=== PATIENT | female | born 2000 | race Hispanic/Latino ===

== ENCOUNTER 2021-08-04 23:32 | Day surgery (SDC) | payer OTHER ==
[2021-08-05 00:14] VITALS: BMI 35.2
[2021-08-05 00:39] LABS: Fetal Membranes Rupture No Membranes Rupture (No Rupture)
== END 2021-08-05 00:50 | disposition home or self-care (01) ==
LOC: CSHLD/OP 23:32
PROVIDERS: ATTEND Family Medicine
DX: O99.891 Other specified diseases and conditions complicating pregnancy (principal); N89.8 Other specified noninflammatory disorders of vagina; M54.9 Dorsalgia, unspecified; O36.8130 Decreased fetal movements, third trimester, not applicable or unspecified; Z3A.38 38 weeks gestation of pregnancy
CPT/HCPCS: 84112

== ENCOUNTER 2021-08-06 23:28 | Inpatient (IN) | payer OTHER ==
[2021-08-07] MEDS ORDERED: Ondansetron PF 4 MG/2 ML Vial IVP PRN (00:07)
[2021-08-07] MEDS ORDERED: Lidocaine 1% (PF) 30 ML VIAL SC PRN (00:07)
[2021-08-07] MEDS ORDERED: Butorphanol Tartrate 1 MG/ML VIAL SLOW IVP PRN (00:07)
[2021-08-07] MEDS ORDERED: Ibuprofen 800 MG TAB PO PRN (00:07)
[2021-08-07] MEDS ORDERED: HYDROcodone/Acetaminophen 5/325 mg Tablet PO PRN ×2 (00:07→08:01)
[2021-08-07] MEDS ORDERED: hydrALAZINE 20 MG/ML VIAL SLOW IVP PRN ×2 (00:07→08:01)
[2021-08-07] MEDS ORDERED: Promethazine HCl 25 MG/ML VIAL IM PRN (00:07)
[2021-08-07] MEDS ORDERED: Penicillin G Potassium 5 MILL.UNITS VIAL ONE (00:13)
[2021-08-07] MEDS ORDERED: NS w/ Oxytocin 30 units 500 ML IV SCH (00:15)
[2021-08-07] MEDS ORDERED: Lactated Ringer's 1,000 ML IV SCH ×2 (00:15)
[2021-08-07] MEDS ORDERED: Penicillin G Potassium 5 MILL.UNITS in Sodium Chloride 0.9% 100 ML IVPB SCH (00:15)
[2021-08-07] MEDS ORDERED: Lidocaine 1% (PF) 30 ML VIAL ONE (00:23)
[2021-08-07] MEDS ORDERED: NS w/ Oxytocin 30 units 500 ML ONE (00:23)
[2021-08-07] MEDS ORDERED: Oxytocin 10 UNITS/ML VIAL ONE (00:28)
[2021-08-07] MEDS ORDERED: Misoprostol 200 MCG TAB ONE ×2 (00:43→00:45)
[2021-08-07 00:45] LABS: Hemoglobin 10.9 g/dL (12.0-15.5); Mean Corpuscular HGB CONC 32.6 g/dL (32.0-36.0); Mean Corpuscular Hemoglobin 29.5 pg (27.0-33.0); Mean Corpuscular Volume 90.5 fl (81.6-98.3); Mean Platelet Volume 11.6 fl (7.4-10.4); Platelet Count 284 10x3/uL (150-450); RBC Distribution Width 13.7 % (11.5-14.5); Red Blood Cell (RBC) Count 3.69 10x6/uL (3.90-5.03); White Blood Cell (WBC) Count 12.2 10x3/uL (3.5-10.5)
[2021-08-07 01:12] LABS: Hep B Surf Ag Non-Reactive S/CO (NonReactive); Syphilis Antibody Nonreactive (Nonreactive); Syphilis Antibody Index 0.04 S/CO (<1.00 Non-Reactive)
[2021-08-07 01:35] LABS: HBSAg Index 0.18 S/CO (0-0.99)
[2021-08-07] MEDS ORDERED: Penicillin G 2.5 MILL.units 2.5 MILL.UNITS in Premix Bag 1 BAG IVPB SCH (04:00)
[2021-08-07 05:25] VITALS: BMI 35.2
[2021-08-07] MEDS ORDERED: Milk Of Magnesia 30 ML UDCUP PO PRN (08:01)
[2021-08-07] MEDS ORDERED: Bisacodyl 10 MG SUPP PR PRN (08:01)
[2021-08-07] MEDS ORDERED: Boostrix 0.5 ML (Tdap) VIAL IM ONE (08:01)
[2021-08-07] MEDS ORDERED: Lanolin Ointment 7 GM TUBE TOP PRN (08:01)
[2021-08-07] MEDS ORDERED: Benzocaine-Menthol 82.5 ML CAN TOP PRN (08:01)
[2021-08-07] MEDS: Docusate 100 MG CAP PO SCH ×2 (11:28→22:03)
[2021-08-07] MEDS: Ferrous Sulfate 325 MG TAB PO SCH ×2 (11:28→17:59)
[2021-08-07] MEDS: Prenatal Vitamin 1 TAB PO SCH (11:29)
[2021-08-07] MEDS: Ibuprofen 800 MG TAB PO SCH ×2 (14:17→22:03)
[2021-08-07 21:00] LABS: SARS-CoV-2 PCR by NAA DETECTED (NotDetected)
[2021-08-08 05:00] LABS: Hemoglobin 8.3 g/dL (12.0-15.5)
[2021-08-08] MEDS: Ibuprofen 800 MG TAB PO SCH ×4 (06:24→22:02)
[2021-08-08] MEDS: Docusate 100 MG CAP PO SCH ×2 (09:49→22:01)
[2021-08-08] MEDS: Prenatal Vitamin 1 TAB PO SCH (09:49)
[2021-08-08] MEDS: Ferrous Sulfate 325 MG TAB PO SCH ×2 (09:50→16:42)
[2021-08-09] MEDS: Ibuprofen 800 MG TAB PO SCH (05:21)
[2021-08-09 09:15] VITALS: BP 115/60; TEMP 98
== END 2021-08-09 11:11 | disposition home or self-care (01) | DRG 805 ==
LOC: CSHLD/OP 23:28 → CSHLD 08-07 00:17 → CSHPED 08-07 11:20
PROVIDERS: ADMIT Family Medicine; ATTEND Family Medicine
PROC: 10E0XZZ Delivery of Products of Conception, External Approach (ICD-10-PCS; principal; 2021-08-07)
PROC: 0KQM0ZZ Repair Perineum Muscle, Open Approach (ICD-10-PCS; 2021-08-07)
PROC: 8E0ZXY6 Isolation (ICD-10-PCS; 2021-08-07)
DX: O98.52 Other viral diseases complicating childbirth (principal); U07.1 COVID-19; Z37.0 Single live birth; O70.1 Second degree perineal laceration during delivery; Z3A.38 38 weeks gestation of pregnancy
CPT/HCPCS: 36415; 85014; 85018; 85027; 86780; 86850; 86900; 86901; 87340; 99285; J2540; J2590; U0003; U0005

== ENCOUNTER 2021-09-15 01:29 | Emergency (ER) | payer OTHER ==
[2021-09-15 02:04] LABS: #Eosinphils 0.2 10x3/uL (0.0-0.5); #Monocytes 0.6 10x3/uL (0.0-1.1); #Neutrophils 6.1 10x3/uL (1.5-8.4); %Basophils 0.4 % (0.0-2.0); %Eosinophils 2.4 % (0.0-6.0); %Lymphocytes 18.5 % (18.0-47.0); %Monocytes 6.7 % (0.0-10.0); %Neutrophils 71.5 % (40.0-75.0); Hemoglobin 11.1 g/dL (12.0-15.5); Mean Corpuscular HGB CONC 31.8 g/dL (32.0-36.0); Mean Corpuscular Volume 88.1 fl (81.6-98.3); Mean Platelet Volume 11.5 fl (7.4-10.4); Platelet Count 294 10x3/uL (150-450); RBC Distribution Width 14.1 % (11.5-14.5); Red Blood Cell (RBC) Count 3.96 10x6/uL (3.90-5.03); White Blood Cell (WBC) Count 8.5 10x3/uL (3.5-10.5)
[2021-09-15 02:13] LABS: ALT (SGPT) 22 U/L (8-55); AST (SGOT) 14 U/L (5-30); Albumin 3.9 g/dL (3.5-5.0); Alkaline Phosphatase 111 U/L (40-100); Anion Gap 11 mmol/L (10-20); BUN (Urea Nitrogen) 13 mg/dL (8.4-21.0); Bilirubin, Total 0.3 mg/dL (0.2-1.2); Calc. Creatinine Clearance 0 mL/min (70-130); Calcium 8.5 mg/dL (7.8-10.44); Carbon Dioxide 23 mmol/L (22-29); Chloride 110 mmol/L (98-107); Globulin 2.8 g/dL (2.4-3.5); Glucose 94 mg/dL (70-105); Lipase 27 U/L (8-78); Potassium 3.8 mmol/L (3.5-5.1); Protein, Total 6.7 g/dL (6.0-8.3); Sodium 140 mmol/L (136-145)
[2021-09-15] MEDS ORDERED: Ondansetron PF 4 MG/2 ML Vial ONE (03:01)
[2021-09-15] MEDS ORDERED: Morphine 4 MG/ML VIAL ONE (03:01)
[2021-09-15] MEDS ORDERED: Ketorolac Tromethamine 30 MG/ML VIAL ONE (03:02)
== END 2021-09-15 03:18 | disposition home or self-care (01) ==
LOC: CSHERS 01:29
DX: K80.20 Calculus of gallbladder without cholecystitis without obstruction (principal)
CPT/HCPCS: 76705; 80053; 83690; 85025; 96374; 96375; J1885; J2270; J2405

== ENCOUNTER 2023-12-15 09:07 | Emergency (ER) | payer OTHER ==
[2023-12-15 09:57] LABS: #Basophils 0.03 10x3/uL (0.0-0.2); #Eosinphils 0.22 10x3/uL (0.0-0.5); #Monocytes 0.53 10x3/uL (0.0-1.1); #Neutrophils 5.97 10x3/uL (1.5-8.4); %Basophils 0.3 % (0.0-2.0); %Eosinophils 2.5 % (0.0-6.0); %Lymphocytes 23.4 % (18.0-47.0); %Neutrophils 67.5 % (40.0-75.0); Hemoglobin 11.5 g/dL (12.0-15.5); Mean Corpuscular HGB CONC 33.8 g/dL (32.0-36.0); Mean Corpuscular Hemoglobin 30.6 pg (27.0-33.0); Mean Corpuscular Volume 90.4 fl (81.6-98.3); Mean Platelet Volume 11.5 fl (7.4-10.4); Platelet Count 322 10x3/uL (150-450); RBC Distribution Width 14.1 % (11.5-14.5); Red Blood Cell (RBC) Count 3.76 10x6/uL (3.90-5.03); White Blood Cell (WBC) Count 8.9 10x3/uL (3.5-10.5)
[2023-12-15 10:05] LABS: Bilirubin Neg (Negative); Blood, Urine 25 (Negative); Glucose, Urine (Dipstick) Normal (Negative); Ketone, Urine Negative (Negative); Leukocyte 500 (Negative); Nitrite Negative (Negative); Protein, Urine (Dipstick) 30 mg/dl (Neg-Trace); Urobilinogen Normal mg/dL (Less than 2)
[2023-12-15 10:08] LABS: Clarity Slightly Cloudy (Clear)
[2023-12-15 10:13] LABS: Bacteria/HPF 1+ HPF (None Seen)
[2023-12-15 10:16] LABS: CAUTI Indications for Culture Pregnancy
[2023-12-15 10:16] LABS: ALT (SGPT) 9 U/L (8-55); AST (SGOT) 13 U/L (5-34); Alkaline Phosphatase 64 U/L (40-110); Anion Gap 12 mmol/L (10-20); BUN (Urea Nitrogen) 7 mg/dL (7.0-18.7); Bilirubin, Total 0.2 mg/dL (0.2-1.2); Calc. Creatinine Clearance 0 mL/min (70-130); Calcium 8.7 mg/dL (7.8-10.44); Carbon Dioxide 20 mmol/L (22-29); Chloride 107 mmol/L (98-107); Estimated GFR 126; Globulin 3.3 g/dL (2.4-3.5); Glucose 85 mg/dL (70-105); Lipase 16 U/L (8-78); Potassium 3.5 mmol/L (3.5-5.1); Protein, Total 6.3 g/dL (6.0-8.3); Sodium 135 mmol/L (136-145)
[2023-12-15 10:18] LABS: Urine Culture Reflex Yes Yes
[2023-12-15 11:07] LABS: Bilirubin Neg (Negative); Blood, Urine Negative (Negative); Clarity Clear (Clear); Glucose, Urine (Dipstick) Normal (Negative); Ketone, Urine Negative (Negative); Leukocyte 100 (Negative); Nitrite Negative (Negative); Protein, Urine (Dipstick) Negative (Neg-Trace); Specific Gravity, Urine 1.005 (1.005-1.030); Urobilinogen Normal mg/dL (Less than 2); pH, Urine 6.5 (5.0-9.0)
[2023-12-15 11:35] LABS: Bacteria/HPF Rare-Few HPF (None Seen); CAUTI Indications for Culture Acute Hematuria; RBC/HPF 0-3 HPF (0-3)
[2023-12-15 11:37] LABS: Urine Culture Reflex No No
== END 2023-12-15 12:10 | disposition home or self-care (01) ==
LOC: CSHERS 09:07
DX: O23.591 Infection of other part of genital tract in pregnancy, first trimester (principal); B96.89 Other specified bacterial agents as the cause of diseases classified elsewhere; O98.811 Other maternal infectious and parasitic diseases complicating pregnancy, first trimester; B37.31 Acute candidiasis of vulva and vagina; Z3A.01 Less than 8 weeks gestation of pregnancy
CPT/HCPCS: 80053; 81001; 83690; 84702; 85025; 87086; 87480; 87510; 87660; 99284

== ENCOUNTER 2024-03-10 10:52 | Observation (INO) | payer OTHER ==
[2024-03-10] MEDS ORDERED: hydrALAZINE 20 MG/ML VIAL SLOW IVP PRN (12:04)
[2024-03-10] MEDS: Lactated Ringer's 1,000 ML IV SCH (12:20)
[2024-03-10 13:23] LABS: Fetal Membranes Rupture No Membranes Rupture (No Rupture)
[2024-03-10] MEDS: Fluconazole 100 MG TAB PO SCH (16:38)
[2024-03-10 16:46] VITALS: BMI 33.9
[2024-03-10] MEDS: metroNIDAZOLE 500 MG TAB PO SCH (21:28)
[2024-03-11 07:53] VITALS: BP 126/72; TEMP 97.5
== END 2024-03-11 10:20 | disposition home or self-care (01) ==
LOC: CSHLD/OP 10:52 → CSHANTE 16:06
PROVIDERS: ADMIT Family Medicine; ATTEND Family Medicine
DX: O60.03 Preterm labor without delivery, third trimester (principal); Z3A.29 29 weeks gestation of pregnancy
CPT/HCPCS: 76816; 76817; 76819; 84112; 87480; 87510; 87660; 96360; 99285; J7120

== ENCOUNTER 2024-04-20 09:50 | Observation (INO) | payer OTHER ==
[2024-04-20 10:03] VITALS: BMI 38.9
[2024-04-20] MEDS ORDERED: hydrALAZINE 20 MG/ML VIAL SLOW IVP PRN (11:01)
[2024-04-20] MEDS: Lactated Ringer's 1,000 ML IV SCH (13:00)
[2024-04-20 13:19] LABS: Bilirubin Neg (Negative); Blood, Urine 50 (Negative); Clarity Clear (Clear); Glucose, Urine (Dipstick) Normal (Negative); Ketone, Urine Negative (Negative); Leukocyte 500 (Negative); Nitrite Negative (Negative); Protein, Urine (Dipstick) 15 mg/dl (Neg-Trace); Specific Gravity, Urine 1.005 (1.005-1.030); Urobilinogen Normal mg/dL (Less than 2)
[2024-04-20 14:07] LABS: Bacteria/HPF 2+ HPF (None Seen); CAUTI Indications for Culture Pregnancy; RBC/HPF 0-3 HPF (0-3)
[2024-04-20 14:09] LABS: Urine Culture Reflex Yes Yes
[2024-04-20] MEDS: Fluconazole 100 MG TAB PO SCH (14:34)
[2024-04-20] MEDS: metroNIDAZOLE 500 MG TAB PO SCH (14:34)
[2024-04-20] MEDS ORDERED: Ondansetron PF 4 MG/2 ML Vial IVP PRN (16:30)
[2024-04-20] MEDS ORDERED: Promethazine HCl 25 MG/ML VIAL IM PRN (16:30)
[2024-04-20] MEDS ORDERED: Oxytocin 30 units/NS 500 ML 500 ML IV SCH (16:30)
[2024-04-20] MEDS ORDERED: Lidocaine 1% (PF) 30 ML VIAL SC PRN (16:30)
[2024-04-20] MEDS ORDERED: Carboprost 250 MCG/ML AMP IM PRN (16:31)
[2024-04-20] MEDS ORDERED: Diphenoxylate HCl/Atropine Tablet PO PRN (16:31)
[2024-04-20] MEDS ORDERED: Tranexamic Acid 1,000 MG/10 ML VIAL IVP PRN (16:31)
[2024-04-20] MEDS ORDERED: Methylergonovine 0.2 MG/ML VIAL IM PRN (16:31)
[2024-04-20] MEDS ORDERED: Misoprostol 200 MCG TAB PR PRN (16:31)
[2024-04-20] MEDS: Penicillin G Potassium 5 MILL.UNITS in Sodium Chloride 0.9% 100 ML IVPB SCH (17:53)
[2024-04-20 20:07] LABS: Hematocrit 33.8 % (34.9-44.5); Hemoglobin 10.3 g/dL (12.0-15.5); Mean Corpuscular HGB CONC 30.5 g/dL (32.0-36.0); Mean Corpuscular Volume 88.5 fL (81.6-98.3); Mean Platelet Volume 11.8 fL (7.4-10.4); Platelet Count 307 10x3/uL (150-450); RBC Distribution Width 19.9 % (11.5-14.5); Red Blood Cell (RBC) Count 3.82 10x6/uL (3.90-5.03); White Blood Cell (WBC) Count 10.7 10x3/uL (3.5-10.5)
[2024-04-20 20:31] LABS: HBsAg Index 0.23 S/CO (0-0.99); Hep B Surf Ag - L&D Non-Reactive S/CO (NonReactive)
[2024-04-20 20:33] LABS: Syphilis Antibody Nonreactive (Nonreactive); Syphilis Antibody Index 0.04 S/CO (<1.00 Non-Reactive)
[2024-04-20] MEDS ORDERED: metroNIDAZOLE 500 MG TAB PO SCH (21:00)
[2024-04-21] MEDS: Lactated Ringer's 1,000 ML IV SCH (00:45)
[2024-04-21] MEDS: Penicillin G 2.5 MILL.units 2.5 MILL.UNITS in Premix 1 BAG IVPB SCH (00:46)
== END 2024-04-21 12:15 | disposition home health service (06) ==
LOC: CSHLD/OP 09:50 → INTOOBSV 16:33 → CSHLD 16:33
PROVIDERS: ADMIT Family Medicine; ATTEND Family Medicine
DX: O36.8130 Decreased fetal movements, third trimester, not applicable or unspecified (principal); O99.891 Other specified diseases and conditions complicating pregnancy; R10.30 Lower abdominal pain, unspecified; O98.813 Other maternal infectious and parasitic diseases complicating pregnancy, third trimester; B37.31 Acute candidiasis of vulva and vagina; O99.613 Diseases of the digestive system complicating pregnancy, third trimester; K21.9 Gastro-esophageal reflux disease without esophagitis; O26.873 Cervical shortening, third trimester; Z3A.35 35 weeks gestation of pregnancy; Z90.49 Acquired absence of other specified parts of digestive tract; Z79.899 Other long term (current) drug therapy
CPT/HCPCS: 76815; 76819; 81001; 85027; 86780; 86850; 86900; 86901; 87086; 87340; 87480; 87510; 87660; 99285; G0378; J2540; J7120

== ENCOUNTER 2024-04-26 16:12 | Inpatient (IN) | payer OTHER ==
[2024-04-26] MEDS ORDERED: Penicillin G Potassium 5 MILL.UNITS VIAL ONE (16:57)
[2024-04-26 17:10] VITALS: BMI 39.8
[2024-04-26] MEDS ORDERED: hydrALAZINE 20 MG/ML VIAL SLOW IVP PRN (17:16)
[2024-04-26] MEDS ORDERED: Ondansetron PF 4 MG/2 ML Vial IVP PRN (17:16)
[2024-04-26] MEDS ORDERED: Promethazine HCl 25 MG/ML VIAL IM PRN (17:16)
[2024-04-26] MEDS ORDERED: Oxytocin 30 units/NS 500 ML 500 ML IV SCH (17:30)
[2024-04-26 18:02] LABS: Hematocrit 34.6 % (34.9-44.5); Hemoglobin 10.8 g/dL (12.0-15.5); Mean Corpuscular HGB CONC 31.2 g/dL (32.0-36.0); Mean Corpuscular Hemoglobin 28.5 pg (27.0-33.0); Mean Corpuscular Volume 91.3 fL (81.6-98.3); Mean Platelet Volume 11.9 fL (7.4-10.4); Platelet Count 281 10x3/uL (150-450); RBC Distribution Width 21.5 % (11.5-14.5); Red Blood Cell (RBC) Count 3.79 10x6/uL (3.90-5.03); White Blood Cell (WBC) Count 10.1 10x3/uL (3.5-10.5)
[2024-04-26 18:27] LABS: ALT (SGPT) 11 U/L (8-55); AST (SGOT) 14 U/L (5-34); Albumin 2.8 g/dL (3.5-5.0); Alkaline Phosphatase 138 U/L (40-110); Anion Gap 14 mmol/L (10-20); BUN (Urea Nitrogen) 9 mg/dL (7.0-18.7); Bilirubin, Total 0.2 mg/dL (0.2-1.2); Calc. Creatinine Clearance 219 mL/min (70-130); Calcium 9.2 mg/dL (7.8-10.44); Carbon Dioxide 18 mmol/L (22-29); Chloride 109 mmol/L (98-107); Estimated GFR 128; Globulin 3.1 g/dL (2.4-3.5); Glucose 77 mg/dL (70-105); Potassium 4.2 mmol/L (3.5-5.1); Protein, Total 5.9 g/dL (6.0-8.3); Sodium 137 mmol/L (136-145)
[2024-04-26 18:45] LABS: HBsAg Index 0.22 S/CO (0-0.99); Hep B Surf Ag - L&D Non-Reactive S/CO (NonReactive)
[2024-04-26 18:47] LABS: Syphilis Antibody Nonreactive (Nonreactive); Syphilis Antibody Index 0.04 S/CO (<1.00 Non-Reactive)
[2024-04-26] MEDS: Oxytocin 30 units/NS 500 ML 500 ML IV SCH (19:33)
[2024-04-26] MEDS ORDERED: Ibuprofen 800 MG TAB PO PRN (20:51)
[2024-04-26] MEDS ORDERED: Carboprost 250 MCG/ML AMP IM PRN (20:51)
[2024-04-26] MEDS ORDERED: Diphenoxylate HCl/Atropine Tablet PO PRN (20:51)
[2024-04-26] MEDS ORDERED: Tranexamic Acid 1,000 MG/10 ML VIAL IVP PRN (20:51)
[2024-04-26] MEDS ORDERED: Lactated Ringer's 1,000 ML IV SCH (21:00)
[2024-04-26] MEDS: Penicillin G 2.5 MILL.units 2.5 MILL.UNITS in Premix 1 BAG IVPB SCH (21:45)
[2024-04-26] MEDS ORDERED: fentaNYL/Ropivacaine Epidural 100 ML ONE (23:40)
[2024-04-27] MEDS: fentaNYL 50 mcg/mL 1 mL Vial SLOW IVP PRN (00:16)
[2024-04-27] MEDS: Methylergonovine 0.2 MG/ML VIAL IM PRN (00:41)
[2024-04-27] MEDS: Lidocaine 1% (PF) 30 ML VIAL SC PRN (00:44)
[2024-04-27] MEDS: Morphine 4 MG/ML VIAL ONE (00:52)
[2024-04-27] MEDS: Misoprostol 200 MCG TAB PR PRN (01:06)
[2024-04-27] MEDS ORDERED: Preparation H Ointment 28 GM TUBE PR PRN (03:26)
[2024-04-27] MEDS ORDERED: Promethazine HCl 25 MG/ML VIAL IM PRN (03:26)
[2024-04-27] MEDS ORDERED: Lanolin Ointment 7 GM TUBE TOP PRN (03:26)
[2024-04-27] MEDS ORDERED: Boostrix 0.5 ML (Tdap) VIAL (>/=7 yrs of age) IM ONE (03:26)
[2024-04-27] MEDS ORDERED: Benzocaine-Menthol 82.5 ML CAN TOP PRN (03:26)
[2024-04-27] MEDS ORDERED: hydrALAZINE 20 MG/ML VIAL SLOW IVP PRN (03:26)
[2024-04-27] MEDS ORDERED: Milk Of Magnesia 30 ML UDCUP PO PRN (03:26)
[2024-04-27] MEDS ORDERED: Ondansetron PF 4 MG/2 ML Vial IVP PRN (03:26)
[2024-04-27] MEDS ORDERED: Bisacodyl 10 MG SUPP PR PRN (03:26)
[2024-04-27] MEDS: Ibuprofen 800 MG TAB PO SCH (05:10)
[2024-04-27] MEDS: Prenatal Vitamin 1 TAB PO SCH (09:41)
[2024-04-27] MEDS: Ferrous Sulfate 325 MG TAB PO SCH (09:41)
[2024-04-27] MEDS: Docusate 100 MG CAP PO SCH (09:41)
[2024-04-27] MEDS: fentaNYL 50 mcg/mL 1 mL Vial ONE (19:17)
[2024-04-27] MEDS: Misoprostol 200 MCG TAB ONE (19:17)
[2024-04-27] MEDS: Erythromycin Base 0.5% Oint 1 GM TUBE ONE (19:17)
[2024-04-27] MEDS: Phytonadione Neonatal 1 MG/0.5 ML AMP ONE (19:18)
[2024-04-28 08:19] VITALS: BP 103/57; TEMP 98.4
[2024-04-28] MEDS: Hepatitis B Vaccine 10 MCG/0.5 ML SYR ONE (08:35)
== END 2024-04-28 17:25 | disposition home or self-care (01) | DRG 806 ==
LOC: CSHLD 16:12 → CSHPP 04-27 03:05
PROVIDERS: ADMIT Family Medicine; ATTEND Family Medicine
PROC: 10E0XZZ Delivery of Products of Conception, External Approach (ICD-10-PCS; principal; 2024-04-27)
PROC: 10H07YZ Insertion of Other Device into Products of Conception, Via Natural or Artificial Opening (ICD-10-PCS; 2024-04-27)
PROC: 0HQ9XZZ Repair Perineum Skin, External Approach (ICD-10-PCS; 2024-04-27)
DX: O99.824 Streptococcus B carrier state complicating childbirth (principal); O26.873 Cervical shortening, third trimester; Z37.0 Single live birth; O99.02 Anemia complicating childbirth; D64.9 Anemia, unspecified; Z3A.35 35 weeks gestation of pregnancy; N88.8 Other specified noninflammatory disorders of cervix uteri; O99.214 Obesity complicating childbirth; E66.9 Obesity, unspecified; O70.0 First degree perineal laceration during delivery; O99.892 Other specified diseases and conditions complicating childbirth
CPT/HCPCS: 80053; 85027; 86780; 86850; 86900; 86901; 87340; J2210; J2272; J2540; J2590; J3010

== ENCOUNTER 2025-02-24 01:59 | Emergency (ER) | payer OTHER ==
[2025-02-24 02:29] LABS: Glucose, Urine (Dipstick) Normal (Negative); Leukocyte Negative (Negative); Pregnancy Test - Urine (BHCG) POSITIVE (Negative); Pregu Control Background? CLEAR/WHITE (CLR/WHITE); Pregu Control Bar Appear? YES (CONTROL BAR); Protein, Urine (Dipstick) 15 mg/dl (Neg-Trace); Specific Gravity, Urine 1.025 (1.005-1.030)
[2025-02-24 02:52] LABS: Bacteria/HPF 2+ HPF (None Seen); CAUTI Indications for Culture Pregnancy; Mucous/LPF Few LPF (<2+); RBC/HPF 0-3 HPF (0-3); Urine Culture Reflex No No; WBC/HPF 0-3 HPF (0-3)
[2025-02-24 02:53] LABS: Urine Culture Reflex Yes Yes
[2025-02-24 03:07] LABS: #Basophils Less than 0.03 10x3/uL (0.0-0.2); #Eosinophils 0.16 10x3/uL (0.0-0.5); #Monocytes 0.59 10x3/uL (0.0-1.1); #Neutrophils 3.79 10x3/uL (1.5-8.4); %Basophils 0.3 % (0.0-2.0); %Eosinophils 2.2 % (0.0-6.0); %Lymphocytes 36.4 % (18.0-47.0); %Monocytes 8.2 % (0.0-10.0); %Neutrophils 52.8 % (40.0-75.0); Hematocrit 35.5 % (34.9-44.5); Hemoglobin 11.2 g/dL (12.0-15.5); Mean Corpuscular Hemoglobin 28.4 pg (27.0-33.0); Mean Corpuscular Volume 89.9 fL (81.6-98.3); Platelet Count 304 10x3/uL (150-450); Red Blood Cell (RBC) Count 3.95 10x6/uL (3.90-5.03); White Blood Cell (WBC) Count 7.18 10x3/uL (3.5-10.5)
[2025-02-24 03:30] LABS: ALT (SGPT) 22 U/L (Less than 34); AST (SGOT) 24 U/L (11-34); Albumin 3.7 g/dL (3.1-4.5); Alkaline Phosphatase 84 U/L (40-110); Anion Gap 13 mmol/L (10-20); BUN (Urea Nitrogen) 9 mg/dL (7.0-18.7); Bilirubin, Total 0.3 mg/dL (0.3-1.2); Calc. Creatinine Clearance 0 mL/min (70-130); Calcium 8.6 mg/dL (7.8-10.44); Carbon Dioxide 21 mmol/L (22-29); Chloride 110 mmol/L (98-107); Globulin 3.0 g/dL (2.4-3.5); Glucose 96 mg/dL (70-105); Potassium 3.9 mmol/L (3.5-5.1); Sodium 140 mmol/L (136-145)
== END 2025-02-24 04:42 | disposition home or self-care (01) ==
LOC: CSHERS 01:59
DX: O20.0 Threatened abortion (principal); Z3A.01 Less than 8 weeks gestation of pregnancy
CPT/HCPCS: 36415; 76856; 80053; 81001; 81025; 84702; 85025; 87086